=== PATIENT | female | born 1970 | race Caucasian/White ===

== ENCOUNTER 2019-09-09 20:20 | Emergency (ER) | payer OTHER ==
[2019-09-09] MEDS ORDERED: Ketorolac Tromethamine 60 MG/2 ML VIAL ONE (21:55)
[2019-09-11 14:22] LABS: SARS-CoV-2 MS2 Positive; SARS-CoV-2 N Gene Negative; SARS-CoV-2 S Gene Negative; SARS-CoV-2 by NAA Not Detected (NotDetected); SARS-CoV-2 orf1ab Negative
== END 2019-09-09 22:40 | disposition home or self-care (01) ==
LOC: MADERS 20:20
DX: F43.0 Acute stress reaction (principal); F41.9 Anxiety disorder, unspecified; R35.8 Other polyuria; Z20.828 Contact with and (suspected) exposure to other viral communicable diseases
CPT/HCPCS: 36416; 87635; 96372; 99283; J1885; U0003